=== PATIENT | female | born 1960 | race American Indian/Alaskan Native ===

== ENCOUNTER 2018-02-14 11:06 | Emergency (ER) | payer BC ==
[2018-02-14 11:51] VITALS: BP 118/77
[2018-02-14] MEDS ORDERED: PROVENTIL IH ONE (13:44)
[2018-02-14] MEDS ORDERED: IBUPROFEN PO ONE (13:44)
--- NOTE | 2018-02-14 14:49 | Emergency Department Report ---
Upper Respiratory HPI - HPI Chief Complaint: Upper Respiratory Infection Stated Complaint: COUGH/SOB Time Seen by Provider: 02/14/18 13:43 URI Symptoms: Rhinorrhea: Yes, Sore Throat: Yes, Ear Pain: Yes, Cough: Yes, Shortness of Breath: No, Sick Contacts: Yes, Unable to Take Fluids: No, Urine Output Abnormal: No, Listless Behavior: No Other History: pt dx with Bronchitis 1 week ago tx' d bactrim and prednisone symptoms are worsening, cough productive brown green, wheezing, sore throat bilat ear , - Home Meds and Allergies Home Medications: Previous Rx's Medication Instructions Recorded Last Taken Type ALBUTEROL NEB's [Proventil 0.083% 2.5 mg IH Q4H PRN #25 vial 02/14/18 Unknown Rx NEBS] Azithromycin [Zithromax Z-FREDDY] 250 mg PO DAILY #6 tab 02/14/18 Unknown Rx Dexamethasone [Decadron] 4 mg PO BID 3 Days #6 tablet 02/14/18 Unknown Rx Guaifenesin/Codeine Phosphate 5 ml PO TID PRN #120 ml 02/14/18 Unknown Rx [Guaifenesin-Codeine Liquid] Ibuprofen 800 mg PO TID PRN #30 tablet 02/14/18 Unknown Rx Nebulizer Accessories [Aeroneb Go] 1 each MC ACHS PRN #1 each 02/14/18 Unknown Rx Nebulizer Accessories [Sootheneb 1 each MC PRN PRN #1 each 02/14/18 Unknown Rx [id number] Adult Mask] Allergies/Adverse Reactions: Allergies Allergy/AdvReac Type Severity Reaction Status Date / Time Penicillins Allergy Hives Verified 02/14/18 11:46 ED Review of Systems ROS: Stated complaint: COUGH/SOB Other details as noted in HPI Constitutional: chills, fever Eyes: denies: eye pain, eye discharge, vision change ENT: ear pain, throat pain, congestion Respiratory: cough, wheezing (also this). denies: shortness of breath Cardiovascular: as per HPI. denies: chest pain, palpitations Endocrine: no symptoms reported (I) Gastrointestinal: denies: abdominal pain, nausea, vomiting, diarrhea Genitourinary: denies: urgency, dysuria, discharge Musculoskeletal: as per HPI. denies: back pain, joint swelling, arthralgia Skin: denies: rash, lesions Neurological: as per HPI Psychiatric: denies: anxiety, depression Hematological/Lymphatic: denies: easy bleeding, easy bruising ED Past Medical Hx - Past Medical History Previous Medical History?: No - Surgical History Past Surgical History?: Yes Additional Surgical History: x 1 - Social History Smoking Status: Current Every Day Smoker Substance Use Type: Marijuana - Medications Home Medications: Home Medications Medication Instructions Recorded Confirmed Last Taken Type ALBUTEROL NEB's [Proventil 0.083% 2.5 mg IH Q4H PRN #25 vial 02/14/18 Unknown Rx NEBS] Azithromycin [Zithromax Z-FREDDY] 250 mg PO DAILY #6 tab 02/14/18 Unknown Rx Dexamethasone [Decadron] 4 mg PO BID 3 Days #6 tablet 02/14/18 Unknown Rx Guaifenesin/Codeine Phosphate 5 ml PO TID PRN #120 ml 02/14/18 Unknown Rx [Guaifenesin-Codeine Liquid] Ibuprofen 800 mg PO TID PRN #30 tablet 02/14/18 Unknown Rx Nebulizer Accessories [Aeroneb Go] 1 each MC ACHS PRN #1 each 02/14/18 Unknown Rx Nebulizer Accessories [Sootheneb 1 each MC PRN PRN #1 each 02/14/18 Unknown Rx [id number] Adult Mask] ED Bronchiolitis Physical Exam - Exam General: Vital signs noted. No distress. Alert and acting appropriately. HEENT: Yes Pharyngeal Erythema, Yes Rhinorrhea, No Conjuctival Injection, No Dry Mucous Membranes Ear: Neither TM Bulge, Neither TM Erythema, Neither EAC Discharge Neck: No Adenopathy, No Rigidity Lungs: Yes Good Air Exchange, Yes Wheezes, Yes Cough, No Clear Lung Sounds, No Stridor, No Nasal Flaring, No Retractions, No Use of Accessory Muscles Heart: Yes Regular, No Murmur Abdomen: Yes Normal Bowel Sounds, No Tenderness, No Peritoneal Signs Skin: No Rash, No Eczema Neurologic: Alert and oriented, no deficits. Musculoskeletal: Unremarkable. ED Bronchiolitis Tests - Testing Testing: CXR: Normal/Negative Treatments - Treaments Treatment: Improved Albuterol ED Physical Exam - General Limitations: No Limitations General appearance: alert - Head Head exam: Present: atraumatic, normocephalic - Eye Eye exam: Present: normal appearance, PERRL, EOMI. Absent: scleral icterus Pupils: Present: normal accommodation - ENT ENT exam: Present: mucous membranes moist - Neck Neck exam: Present: normal inspection, full ROM. Absent: tenderness, men ingismus, lymphadenopathy, thyromegaly - Respiratory Respiratory exam: Present: normal lung sounds bilaterally, wheezes. Absent: respiratory distress, stridor, chest wall tenderness - Cardiovascular Cardiovascular Exam: Present: regular rate, normal rhythm, normal heart sounds. Absent: systolic murmur, diastolic murmur, rubs, gallop - GI/Abdominal GI/Abdominal exam: Present: soft, normal bowel sounds. Absent: tenderness, bruit, hernia - Rectal Rectal exam: Present: deferred - Extremities Exam Extremities exam: Present: normal inspection, full ROM, normal capillary refill - Back Exam Back exam: Present: normal inspection, full ROM. Absent: tenderness, CVA tenderness (R), CVA tenderness (L), muscle spasm, paraspinal tenderness, vertebral tenderness, rash noted - Neurological Exam Neurological exam: Present: alert, oriented X3, CN II-XII intact, normal gait - Psychiatric Psychiatric exam: Present: normal affect, normal mood - Skin Skin exam: Present: warm, dry, intact, normal color. Absent: rash ED Course Vital Signs 02/14/18 11:46 Temperature 98.7 F Pulse Rate 61 Respiratory 20 Rate Blood Pressure 118/77 O2 Sat by Pulse 98 Oximetry ED Medical Decision Making - Radiology Data Radiology results: report reviewed, image reviewed Findings [facility] [address] [place] [address] XRay Report Signed Patient: PETAR HERNANDEZ MR#: [id number] : 1960 Acct:[id number] Age/Sex: 57 / F ADM Date: 02/14/18 Loc: ED Attending Dr: Ordering Physician: NISHA SILVERMAN NP Date of Service: 02/14/18 Procedure(s): XR chest routine 2V Accession Number(s): [id number] cc: NISHA SILVERMAN NP Fluoro Time In Minutes: FINAL REPORT EXAM: XR CHEST ROUTINE 2V HISTORY: cough productive TECHNIQUE: Chest, PA and lateral PRIORS: None. FINDINGS: The heart size is normal. Mediastinal contours are normal. Pulmonary vasculature is not congested. The lungs are clear. There are no pleural effusion seen. There is no evidence of pneumothorax. IMPRESSION: There is no acute abnormality identified. Transcribed By: HOWIE Dictated By: JIM GALEANO MD Electronically Authenticated By: JIM GALEANO MD Signed Date/Time: 02/14/18 1448 DD/ 145 TD/TT: 02/14/18 1450 - Medical Decision Making breathing improved with neb, wheezing resolved pt is now ambulatory in ed without increase sob, this is bronchitis plan: albuterol neb vial vice inhaler as patient can afford neb/machie vice inhaler, decadron , ibuprofen, cheratussion, Zpack , pt will follow up with pcp in 2-3 days, return to ed if symptoms worsen. pt for dc to home in stable condition at this time. Critical care attestation.: If time is entered above; I have spent that time in minutes in the direct care of this critically ill patient, excluding procedure time. ED Disposition Clinical Impression: Bronchitis URI (upper respiratory infection) Qualifiers: URI type: unspecified viral URI Qualified Code(s): J06.9 - Acute upper respiratory infection, unspecified Disposition: DC-01 TO HOME OR SELFCARE Is pt being admited?: No Does the pt Need Aspirin: No Condition: Stable Instructions: Chronic Bronchitis (ED) Prescriptions: ALBUTEROL NEB's [Proventil 0.083% NEBS] 2.5 mg IH Q4H PRN #25 vial PRN Reason: Wheezing Azithromycin [Zithromax Z-FREDDY] 250 mg PO DAILY #6 tab Dexamethasone [Decadron] 4 mg PO BID 3 Days #6 tablet Guaifenesin/Codeine Phosphate [Guaifenesin-Codeine Liquid] 5 ml PO TID PRN #120 ml PRN Reason: Cough Ibuprofen 800 mg PO TID PRN #30 tablet PRN Reason: pain fever Nebulizer Accessories [Aeroneb Go] 1 each MC ACHS PRN #1 each PRN Reason: as needed Nebulizer Accessories [Sootheneb [id number] Adult Mask] 1 each MC PRN PRN #1 each PRN Reason: as needed Referrals: PRIMARY CARE, [Primary Care Provider] - 3-5 Days [facility] [Outside] - 3-5 Days Forms: Work/School Release Form(ED) Time of Disposition: 15:04
== END 2018-02-14 14:57 | disposition home or self-care (01) ==
LOC: ED 11:06
DX: J40 Bronchitis, not specified as acute or chronic (principal); J06.9 Acute upper respiratory infection, unspecified; F17.200 Nicotine dependence, unspecified, uncomplicated; F12.10 Cannabis abuse, uncomplicated
CPT/HCPCS: 71046; 94640